=== PATIENT | male | born 1985 | race Caucasian/White ===

== ENCOUNTER 2020-04-26 08:30 | Emergency (ER) | payer MEDICAID, SELFPAY ==
[2020-04-26 08:32] VITALS: BP 128/74; PULSE 69; RESP 15; TEMP 36; O2SAT 98; BMI 22.6
--- NOTE | 2020-04-26 08:50 | ED.VIS.GEN ---
History of Present Illness Chief Complaint: Ear Problem Informant: Patient Narrative: 35-year-old male with history of left ear pain since yesterday. Patient denies any fever. Patient denies any drainage. He does have some nasal congestion. Patient has history of otitis media in the past. He does not have any chest pain, palpitations, shortness of breath. He denies nausea or vomiting. Prior similar symptoms: Yes Past Medical History - Allergies and Home Meds Allergies/Adverse Reactions: Allergies No Known Allergies Allergy (Verified 04/26/20 08:32) Prior records reviewed: Yes Past Medical History: - - History of otitis media Surgical History: noncontributory Lives: Alone Smoking Status: Never smoker Alcohol: None Drugs: None Review of Systems General: Denies: Chills, Fever, Sweats Eyes: Denies: Visual changes - bilaterally, Diplopia ENT: Reports: Left ear pain. Denies: Rhinorrhea, Sore throat Cardiovascular: Denies: Chest pain, Palpitations Respiratory: Denies: Dyspnea, Cough, Dyspnea on exertion Gastrointestinal: Denies: Abdominal pain, Nausea, Vomiting, Diarrhea, Melena, Hematochezia Genitourinary: Denies: Dysuria, Hematuria, Frequency Musculoskeletal: Denies: Back pain, Extremity Pain Skin: Denies: Rash, Wounds Neurological: Denies: Headache, Weakness, Numbness Psych: Denies: Depression, Anxiety, Suicidal thoughts, Suicidal ideations, -, - Physical Exam Vital Signs/Narrative: Vital Signs Temp Pulse Resp BP Pulse Ox 04/26/20 08:32 96.8 F L 69 15 128/74 H 98 General: Well nourished, Well developed, No Acute Distress Head: Normocephalic, Atraumatic Eyes: Perrl ENT: Moist mucous membranes, No rhinorrhea, - - Left TM erythematous and bulging. External auditory canal is normal. No pain with movement of the tragus. Cardiovascular: Regular rate, Regular rhythm Respiratory: No distress, CTA bilaterally Skin: Normal color, No rash. Negative for: Cyanosis, Diaphoresis Neurological: Alert, Oriented x3, Cranial nerves II-XII grossly intact Psychological: Normal affect, Normal Mood Diagnostic/Tx/Re-eval - Medical Decision Making Patient has evidence of left otitis media. He will be started on Augmentin. He prefers to get his first dose from the pharmacy. Vital signs are stable he is afebrile. I feel he is safe for discharge at this time. Impression: 1. Left otitis media ED Disposition - Plan for ED Patient: Disposition: Home or Assisted Living Instructions: ED Otitis Media Antibiotic ... Prescriptions: Amox/Clavulanate Tablet [Augmentin Tablet] 875 mg PO Q12H #20 tab Prescription Printed
== END 2020-04-26 09:04 | disposition home or self-care (01) ==
LOC: ED 09:02
PROVIDERS: Emergency Provider Student in an Organized Health Care Education/Training Program
DX: H66.92 Otitis media, unspecified, left ear (principal); R09.81 Nasal congestion
CPT/HCPCS: 99282

== ENCOUNTER 2021-01-28 13:43 | Outpatient (CLI) | payer MEDICAID, SELFPAY ==
[2021-01-28 13:54] VITALS: BP 146/89; PULSE 67; RESP 16; TEMP 36.8; O2SAT 98; BMI 22.6
[2021-01-28] MEDS: 0.9% Saline Lock 10 ML Syringe IV (14:02)
[2021-01-28 14:39] VITALS: BP 127/87; PULSE 88; RESP 16; TEMP 37; O2SAT 98
[2021-01-28 15:49] VITALS: BP 129/90; PULSE 64; RESP 16; TEMP 36.8; O2SAT 98
== END 2021-01-28 15:49 | disposition home or self-care (01) ==
LOC: MS3OUT 13:43 → MS3 13:44
PROVIDERS: Referring Provider Nurse Practitioner Adult Health; Visit Provider Nurse Practitioner Adult Health
DX: Z23 Encounter for immunization (principal); U07.1 COVID-19
CPT/HCPCS: J7050; M0245; Q0245; A4216

== ENCOUNTER 2021-01-30 13:08 | Emergency (ER) | payer MEDICAID, SELFPAY ==
[2021-01-30 13:10] VITALS: BP 151/98; PULSE 72; RESP 16; TEMP 36.1; O2SAT 95; BMI 23.5
[2021-01-30 13:12] VITALS: BP 151/98; PULSE 72; RESP 16; TEMP 36.1; O2SAT 95
[2021-01-30 13:26] VITALS: O2SAT 95
--- NOTE | 2021-01-30 13:47 | EDS_ITS ---
HPI HPI - URI History of Present Illness Chief Complaint: Shortness of Breath Informant: patient Onset/Context/Timing Onset: Days Context: Gradual Onset Timing: Continuous Current Severity: Mild Maximum Severity: Mild Associated Symptoms Associated Symptoms: Positive for Nasal Congestion, Myalgias, Shortness of Breath and Nonproductive cough; Negative for Nausea, Vomiting and Diarrhea Narrative Narrative: 35-year-old male Covid positive tested positive Thursday he has had symptoms for about 10 days. He did receive monoclonal antibodies on Thursday. He does have a history of asthma. He was on Decadron which she received prescription through an urgent care but he is now out of that he was on for 5 days. He also took Augmentin. No history of DVT or PE. No recent travel surgery immobilization. No hemoptysis. Prior similar symptoms: Yes Recent Illness/Hospitalization: No ROS ROS ED ROS Narrative Short of breath. Cough. Allergies. Review of Systems ROS Unobtainable: Denies due to encephalopathy Constitutional Constitutional ED: Denies fever(s) Eyes Eyes: Denies change in vision ENT ENT ED: Denies ear pain Cardiovascular Cardiovascular: Denies chest pain Respiratory/Chest Respiratory/Chest: Reports cough and dyspnea Gastrointestinal Gastrointestinal: Denies abdominal pain, diarrhea, nausea or vomiting Genitourinary Genitourinary ED: Denies dysuria Musculoskeletal Musculoskeletal: Reports myalgias Integumentary Denies rash Neurologic Neurologic: Denies headache(s) Psychiatric Psychiatric: Denies depression Endocrine Endocrinology: Denies polyuria Hematologic/Lymphatic Hematologic/Lymphatic: Denies easy bruising Allergic/Immunologic Allergic/Immunologic ED: Denies urticaria PFSH PFSH Home Medications prednisone 40 mg PO DAILY #14 tab 01/30/21 [Rx Last Taken Unknown] Allergy/AdvReac Type Severity Reaction Status Date / Time No Known Allergies Allergy Verified 01/30/21 13:09 Social History Smoking Status: Never smoker EXAM Physical Exam Narrative Exam Narrative: 35-year-old male distress vital signs stable afebrile. Pulse ox 95% on room air no hypoxia. HEENT exam unremarkable. Moist with memories. Neck nontender no JVD. Lungs clear to auscultation bilaterally. Heart regular rhythm rate about 72 no murmur. Chest wall nontender. Abdomen soft nontender. Moving all 4 extremities. Calves nontender no edema or cords. Neurologically awake and alert with no focal motor deficits. Const Vital Signs: 01/30/21 13:10 01/30/21 13:12 01/30/21 13:26 Temperature 96.9 F L 96.9 F L Temperature Source Temporal Temporal Pulse Rate 72 72 Respiratory Rate 16 16 Respiratory Effort Normal Respiratory Depth Normal Respiratory Pattern Normal Blood Pressure 151/98 H 151/98 H Blood Pressure Mean 115 115 Pulse Ox 95 95 Oxygen Delivery Method Room Air Room Air Room Air Positive well nourished and well developed; Negative for obese, cachectic or contractures General Appearance ED: well developed and NAD; Negative for cachectic, contractures, cyanotic, diaphoretic or pallor Nutritional Appearance: Negative for cachectic or obese HEENT normocephalic; Negative for scalp tenderness Face and Sinus: Negative for sinus tenderness or facial tenderness External Ear: external ears normal Eyes PERRL and EOMs intact bilaterally General Eye ED: Negative for pale conjunctiva or scleral icterus Neck no lymphadenopathy, supple, no meningeal signs and no JVD General: Negative for anterior neck swelling or lymphadenopathy Resp normal respiratory effort and clear to auscultation bilaterally Auscultation: Negative for rales, rhonchi or wheezes Cardio S1 normal heart sound, S2 normal heart sound and no murmurs Rate: regular rate Rhythm: regular rhythm GI non-tender, non-distended and no masses Auscultation: normoactive bowel sounds Palpation: soft; Negative for tender or guarding Back/Spine no CVA tenderness and normal ROM General Back: Negative for CVA tenderness Cervical Spine: Negative for cervical spine tenderness Extremity normal to inspection and full ROM General Extremety ED: Negative for cyanosis or tenderness General Extremity: Negative for cyanosis Neuro oriented x3 Sensorium / Orientation: alert, oriented to person, oriented to place, oriented to time and stuporous; Negative for orientation impaired or lethargic Motor Exam: strength 5/5 throughout Psych mental status grossly normal Mood & Affect: Negative for depressed or tearful Skin General Skin Exam: Negative for jaundice or pallor Lesions: no lesions Rashes: no rashes MDM MDM MDM Narrative Medical decision making narrative: 34-year-old male no acute distress. Day 10 of Covid. Has had monoclonal antibody therapy. Was on steroids for 5 days now is currently done with that. Presents complaining more shortness of breath. Vital signs are stable he is not hypoxic. Chest x-ray being obtained. Repeat exam patient doing well at 2:27 PM. To be discharged home. We went over his chest x-ray results. Radiography Diagnostic Testing: Clinical Impression(s) from Imaging Studies Chest X-Ray 01/30/21 14:00 IMPRESSION: Normal x-ray examination of the chest. Electronically Signed: Mike Ramírez MD at 14:12 EST , Service support , Chest x-ray, portable, single view interpreted by myself and radiology shows no acute abnormality. Normal cardiac silhouette. No infiltrate. No signs of Co vid on the chest x-ray. Discharge Plan Triage Chief Complaint: Shortness of Breath ED Provider: Shane Reeder Dx/Rx/DC Orders Clinical Impression: COVID-19, Asthma Instructions: Human Coronaviruses Prescriptions: New prednisone 20 mg tablet 40 mg PO DAILY Qty: 14 RF: 0 Primary Care Provider: Robert Dacosta NP Referrals: Robert Dacosta NP, [employer] [Primary Care Provider] - 3-5 Days if not improving Activity Restrictions/Additional Instructions: Prednisone daily to help with breathing and decrease the inflammation in your lungs from the Covid. Return if feeling a lot worse. Follow-up with your primary care physician if not improving. Disposition Disposition: Home, Self Care
--- NOTE | 2021-01-30 14:00 | RAD_ITS ---
STUDY: X-RAY CHEST REASON FOR EXAM: Male, 35 years old. covid TECHNIQUE: Single AP portable view of the chest. COMPARISON: None. FINDINGS: The lungs are clear and expanded. There is no demonstrated pleural abnormality. Normal size heart. Normal mediastinum and emanuel. Normal visualized pulmonary arteries. Normal visualized aortic arch and descending thoracic aorta. Normal visualized thoracic spine. Normal visualized ribs, clavicles, and shoulders. There is no demonstrated abnormality of the visualized soft tissue structures of the upper abdomen. RAD/Chest 1 View (Portable) IMPRESSION: Normal x-ray examination of the chest. Electronically Signed: Mike Ramírez MD at 14:12 EST , Service support ,
== END 2021-01-30 14:38 | disposition home or self-care (01) ==
PROVIDERS: Emergency Provider Emergency Medicine; PCP Nurse Practitioner Family
DX: U07.1 COVID-19 (principal); J45.909 Unspecified asthma, uncomplicated; Z79.52 Long term (current) use of systemic steroids
CPT/HCPCS: 71045; 99282